=== PATIENT | male | born 1945 | race Caucasian/White ===

== ENCOUNTER 2021-06-23 14:48 | Inpatient (IN) ==
[2021-06-24] MEDS ORDERED: Acetaminophen 325 MG TABLET PO PRN (18:54)
[2021-06-24] MEDS: methocarbamoL 500 MG TABLET PO PRN (19:33)
[2021-06-24] MEDS: *HR* OxyCODONE Immed Rel 5 MG TABLET PO PRN (19:33)
[2021-06-24] MEDS: Melatonin 3 MG TABLET PO SCH (20:36)
[2021-06-24] MEDS: traZODone 50 MG TABLET PO PRN (20:36)
[2021-06-24] MEDS: Sennosides/Docusate Sodium TABLET PO SCH (20:36)
[2021-06-24] MEDS ORDERED: Hydrocortisone Acetate 25 MG RECTAL SUPPOSITORY RC ONE (22:35)
[2021-06-24] MEDS ORDERED: Hydrocortisone Acetate 25 MG RECTAL SUPPOSITORY RC PRN (22:57)
[2021-06-25] MEDS: *HR* OxyCODONE Immed Rel 5 MG TABLET PO PRN ×3 (00:04→08:23)
[2021-06-25] MEDS: *HR* Enoxaparin 40 MG/0.4 ML SYRINGE SQ SCH (03:56)
[2021-06-25] MEDS: methocarbamoL 500 MG TABLET PO PRN (03:57)
[2021-06-25 04:11] LABS: Bilirubin,Urine Negative (Negative); Blood,Urine Moderate (Negative); Clarity,Urine Clear (Clear); Color,Urine Yellow (Yellow); Glucose,Urine (UA) Normal (Normal); Ketones,Urine 15 mg/dL (Negative); Leukocyte Esterase,Urine Negative (Negative); Nitrite,Urine Positive (Negative); PH,Urine 6.5 pH Units (5.0-8.0); Protein,Urine Trace mg/dL (Neg-Trace); Specific Gravity,Urine 1.025 (1.010-1.025); Urobilinogen,Urine Normal (Normal)
[2021-06-25 04:25] LABS: Bacteria,Urine Many per hpf (None-Few); RBC,Urine 0-3 per hpf (0-3); Squamous Epithelial Cell,Urine Few per hpf (None-Few); WBC,Urine 0-3 per hpf (0-3)
[2021-06-25 05:55] LABS: Basophils % 0.2 %; Eosinophils # 0.1 K/mcL (0.0-0.6); Eosinophils % 1.4 %; Hematocrit 24.3 % (37.5-50.1); Immature Granulocytes % 1.4 % (0-4); Lymphocytes # 0.4 K/mcL (0.6-4.6); Lymphocytes % 7.2 %; Mean Corpuscular HGB Conc 32.9 g/dL (31.6-35.5); Mean Corpuscular Hemoglobin 30.5 pg (28.0-33.3); Mean Corpuscular Volume 92.7 fL (83.0-100.0); Mean Platelet Volume 8.8 fL (9.4-12.4); Monocytes % 0.7 %; Nucleated Red Blood Cells 0.7 /100 WBC (0); Platelet Count 215 K/mcL (140-400); Red Blood Count 2.62 M/mcL (4.19-5.50); Red Cell Distribution Width 14.6 % (11.5-14.5); Segmented Neutrophils % 89.1 %; White Blood Count 5.7 K/mcL (4.3-11.1)
[2021-06-25 05:56] LABS: Neutrophils # 5.1 K/mcL (1.6-8.9)
[2021-06-25 06:10] LABS: BUN/Creatinine Ratio 26 (6-26); Blood Urea Nitrogen 22 mg/dL (8-23); Calcium 8.5 mg/dL (8.6-10.3); Carbon Dioxide 22 mEq/L (23-29); Chloride 103 mEq/L (98-107); Glucose 108 mg/dL (70-105); Osmolality,Calculated 280 (280-300); Potassium 3.7 mEq/L (3.5-5.1); Sodium 133 mEq/L (136-145); eGFR For African Americans > 60 (> 60); eGFR For Non-African Americans > 60 (> 60)
[2021-06-25] MEDS ORDERED: Preparation H Ointment 57 GM TUBE TP PRN (08:00)
[2021-06-25] MEDS: Sennosides/Docusate Sodium TABLET PO SCH ×2 (08:14→20:19)
[2021-06-25] MEDS: polyethylene glycoL 3350 17 GM POWD.PACK PO SCH (08:15)
[2021-06-25] MEDS ORDERED: CefTRIAXone 1,000 MG VIAL IVPB SCH (09:00)
[2021-06-25] MEDS ORDERED: cefTRIAXone 1,000 MG in 0.9 % Sodium Chloride Mini Bag 100 ML IVPB SCH (09:00)
[2021-06-25] MEDS ORDERED: 0.9 % Sodium Chloride 500 ML ONE (10:43)
[2021-06-25] MEDS ORDERED: 0.9 % Sodium Chloride 500 ML IVC ONE ×2 (10:44→18:25)
[2021-06-25] MEDS ORDERED: *HR* LORazepam 2 MG/ML VIAL IVP ONE (10:44)
[2021-06-25] MEDS ORDERED: Acetaminophen IV 1,000 MG/100 ML BAG IVPB ONE ×2 (10:49→11:06)
[2021-06-25] MEDS: 0.9 % Sodium Chloride 1,000 ML IVC SCH ×2 (11:47→22:03)
[2021-06-25] MEDS ORDERED: 0.9 % Sodium Chloride 1,000 ML IVC ONE ×2 (11:56→16:18)
[2021-06-25] MEDS: Piperacillin/Tazobactam 3.375 GM in 0.9 % Sodium Chloride Mini Bag 100 ML IVPB SCH ×2 (12:40→20:20)
[2021-06-25] MEDS ORDERED: 0.9 % Sodium Chloride 500 ML IV ONE (14:58)
[2021-06-25 18:05] LABS: BUN/Creatinine Ratio 21 (6-26); Blood Urea Nitrogen 23 mg/dL (8-23); Calcium 7.5 mg/dL (8.6-10.3); Carbon Dioxide 19 mEq/L (23-29); Chloride 105 mEq/L (98-107); Glucose 107 mg/dL (70-105); Osmolality,Calculated 278 (280-300); Potassium 3.4 mEq/L (3.5-5.1); Sodium 132 mEq/L (136-145); eGFR For African Americans > 60 (> 60); eGFR For Non-African Americans > 60 (> 60)
[2021-06-25] MEDS: Melatonin 3 MG TABLET PO SCH (20:19)
[2021-06-25] MEDS: Hydrocortisone Acetate 25 MG RECTAL SUPPOSITORY RC SCH (20:20)
[2021-06-26] MEDS: *HR* Enoxaparin 40 MG/0.4 ML SYRINGE SQ SCH (04:06)
[2021-06-26] MEDS: Piperacillin/Tazobactam 3.375 GM in 0.9 % Sodium Chloride Mini Bag 100 ML IVPB SCH ×3 (04:06→20:35)
[2021-06-26] MEDS: *HR* OxyCODONE Immed Rel 5 MG TABLET PO PRN ×2 (04:28→20:35)
[2021-06-26 06:00] LABS: Hematocrit 23.1 % (37.5-50.1); Hemoglobin 7.5 g/dL (12.9-16.9); Mean Corpuscular HGB Conc 32.5 g/dL (31.6-35.5); Mean Corpuscular Volume 95.5 fL (83.0-100.0); Mean Platelet Volume 9.4 fL (9.4-12.4); Platelet Count 217 K/mcL (140-400); Red Blood Count 2.42 M/mcL (4.19-5.50)
[2021-06-26 06:25] LABS: Alanine Aminotransferase 31 Units/L (7-52); Albumin 3.3 g/dL (3.5-5.7); Albumin/Globulin Ratio 1.7 (1.1-2.2); Alkaline Phosphatase 61 Units/L (34-104); Aspartate Amino Transferase 27 Units/L (13-39); BUN/Creatinine Ratio 22 (6-26); Bilirubin,Total 1.4 mg/dL (0.3-1.0); Blood Urea Nitrogen 25 mg/dL (8-23); Calcium 7.5 mg/dL (8.6-10.3); Carbon Dioxide 19 mEq/L (23-29); Chloride 106 mEq/L (98-107); Glucose 101 mg/dL (70-105); Magnesium 1.9 mg/dL (1.6-2.6); Osmolality,Calculated 287 (280-300); Potassium 3.4 mEq/L (3.5-5.1); Sodium 136 mEq/L (136-145); Total Protein 5.3 g/dL (6.4-8.9); eGFR For African Americans > 60 (> 60); eGFR For Non-African Americans > 60 (> 60)
[2021-06-26] MEDS: 0.9 % Sodium Chloride 1,000 ML IVC SCH ×2 (06:26→18:11)
[2021-06-26] MEDS: Sennosides/Docusate Sodium TABLET PO SCH ×2 (08:35→20:35)
[2021-06-26] MEDS: Hydrocortisone Acetate 25 MG RECTAL SUPPOSITORY RC SCH ×2 (08:35→20:35)
[2021-06-26] MEDS: polyethylene glycoL 3350 17 GM POWD.PACK PO SCH (08:36)
[2021-06-26] MEDS ORDERED: 0.9 % Sodium Chloride 500 ML IV ONE (12:49)
[2021-06-26] MEDS: Melatonin 3 MG TABLET PO SCH (20:35)
[2021-06-27] MEDS: 0.9 % Sodium Chloride 1,000 ML IVC SCH ×3 (01:11→08:59)
[2021-06-27] MEDS: *HR* Enoxaparin 40 MG/0.4 ML SYRINGE SQ SCH (04:26)
[2021-06-27] MEDS: Piperacillin/Tazobactam 3.375 GM in 0.9 % Sodium Chloride Mini Bag 100 ML IVPB SCH ×3 (04:28→21:42)
[2021-06-27 04:50] LABS: Hematocrit 21.5 % (37.5-50.1); Mean Corpuscular HGB Conc 32.6 g/dL (31.6-35.5); Mean Corpuscular Hemoglobin 30.7 pg (28.0-33.3); Mean Corpuscular Volume 94.3 fL (83.0-100.0); Mean Platelet Volume 9.1 fL (9.4-12.4); Platelet Count 193 K/mcL (140-400); Red Blood Count 2.28 M/mcL (4.19-5.50); Red Cell Distribution Width 15.8 % (11.5-14.5)
[2021-06-27 05:05] LABS: BUN/Creatinine Ratio 21 (6-26); Blood Urea Nitrogen 19 mg/dL (8-23); Calcium 7.3 mg/dL (8.6-10.3); Carbon Dioxide 21 mEq/L (23-29); Chloride 113 mEq/L (98-107); Glucose 90 mg/dL (70-105); Osmolality,Calculated 292 (280-300); Potassium 3.5 mEq/L (3.5-5.1); Sodium 140 mEq/L (136-145); eGFR For African Americans > 60 (> 60); eGFR For Non-African Americans > 60 (> 60)
[2021-06-27] MEDS: Sennosides/Docusate Sodium TABLET PO SCH ×2 (09:02→20:41)
[2021-06-27] MEDS: Hydrocortisone Acetate 25 MG RECTAL SUPPOSITORY RC SCH ×2 (09:03→20:42)
[2021-06-27] MEDS: polyethylene glycoL 3350 17 GM POWD.PACK PO SCH (09:03)
[2021-06-27] MEDS ORDERED: 0.9 % Sodium Chloride 500 ML ONE (14:11)
[2021-06-27] MEDS: Melatonin 3 MG TABLET PO SCH (20:42)
[2021-06-28] MEDS: Piperacillin/Tazobactam 3.375 GM in 0.9 % Sodium Chloride Mini Bag 100 ML IVPB SCH ×3 (04:32→21:15)
[2021-06-28] MEDS: Acetaminophen/Butalbital/CaffeineTABLET PO PRN (04:32)
[2021-06-28 04:53] LABS: Hematocrit 24.1 % (37.5-50.1); Mean Corpuscular HGB Conc 33.2 g/dL (31.6-35.5); Mean Corpuscular Hemoglobin 30.4 pg (28.0-33.3); Mean Corpuscular Volume 91.6 fL (83.0-100.0); Mean Platelet Volume 8.9 fL (9.4-12.4); Platelet Count 232 K/mcL (140-400); Red Blood Count 2.63 M/mcL (4.19-5.50); Red Cell Distribution Width 15.7 % (11.5-14.5); White Blood Count 13.6 K/mcL (4.3-11.1)
[2021-06-28 05:07] LABS: BUN/Creatinine Ratio 16 (6-26); Blood Urea Nitrogen 14 mg/dL (8-23); Calcium 7.8 mg/dL (8.6-10.3); Carbon Dioxide 22 mEq/L (23-29); Chloride 112 mEq/L (98-107); Glucose 90 mg/dL (70-105); Magnesium 2.2 mg/dL (1.6-2.6); Osmolality,Calculated 290 (280-300); Potassium 3.4 mEq/L (3.5-5.1); Sodium 140 mEq/L (136-145); eGFR For African Americans > 60 (> 60); eGFR For Non-African Americans > 60 (> 60)
[2021-06-28] MEDS: Sennosides/Docusate Sodium TABLET PO SCH ×2 (10:36→20:55)
[2021-06-28] MEDS: Hydrocortisone Acetate 25 MG RECTAL SUPPOSITORY RC SCH ×2 (10:36→20:59)
[2021-06-28] MEDS: polyethylene glycoL 3350 17 GM POWD.PACK PO SCH (10:37)
[2021-06-28 12:01] LABS: % Iron Saturation 29 % (20-55); Iron 65 mcg/dL (65-175); Transferrin 159 mg/dL (203-362)
[2021-06-28] MEDS: *HR* OxyCODONE Immed Rel 5 MG TABLET PO PRN ×2 (12:20→18:38)
[2021-06-28 12:26] LABS: Folate 13.3 ng/mL (3.0-16.0)
[2021-06-28] MEDS: traZODone 50 MG TABLET PO PRN (20:55)
[2021-06-28] MEDS: Melatonin 3 MG TABLET PO SCH (20:55)
[2021-06-29] MEDS: *HR* OxyCODONE Immed Rel 5 MG TABLET PO PRN ×2 (05:14→09:25)
[2021-06-29] MEDS: Piperacillin/Tazobactam 3.375 GM in 0.9 % Sodium Chloride Mini Bag 100 ML IVPB SCH ×3 (05:15→21:35)
[2021-06-29] MEDS: polyethylene glycoL 3350 17 GM POWD.PACK PO SCH (09:16)
[2021-06-29] MEDS: Hydrocortisone Acetate 25 MG RECTAL SUPPOSITORY RC SCH ×2 (09:16→21:11)
[2021-06-29] MEDS: Sennosides/Docusate Sodium TABLET PO SCH ×2 (09:16→21:11)
[2021-06-29] MEDS: Acetaminophen/Butalbital/CaffeineTABLET PO PRN (11:35)
[2021-06-29] MEDS ORDERED: Acetaminophen/Butalbital/CaffeineTABLET PO STA (13:59)
[2021-06-29] MEDS: traZODone 50 MG TABLET PO PRN (21:11)
[2021-06-29] MEDS: Melatonin 3 MG TABLET PO SCH (21:11)
[2021-06-29] MEDS: Fluticasone Propionate Nasal 50 MCG/SPRAY BOTTLE NS PRN (21:13)
[2021-06-30] MEDS: Acetaminophen/Butalbital/CaffeineTABLET PO PRN ×2 (04:27→14:35)
[2021-06-30] MEDS: Piperacillin/Tazobactam 3.375 GM in 0.9 % Sodium Chloride Mini Bag 100 ML IVPB SCH (04:30)
[2021-06-30] MEDS: polyethylene glycoL 3350 17 GM POWD.PACK PO SCH (08:15)
[2021-06-30] MEDS: Hydrocortisone Acetate 25 MG RECTAL SUPPOSITORY RC SCH ×2 (08:15→20:12)
[2021-06-30] MEDS: Sennosides/Docusate Sodium TABLET PO SCH ×2 (08:15→20:12)
[2021-06-30] MEDS: Melatonin 3 MG TABLET PO SCH (20:11)
[2021-06-30] MEDS: traZODone 50 MG TABLET PO PRN (20:12)
[2021-06-30] MEDS: Cefdinir 300 MG CAPSULE PO SCH (20:21)
[2021-06-30] MEDS: Fluticasone Propionate Nasal 50 MCG/SPRAY BOTTLE NS PRN (20:25)
[2021-07-01] MEDS: Acetaminophen/Butalbital/CaffeineTABLET PO PRN ×2 (03:10→17:51)
[2021-07-01] MEDS: methocarbamoL 500 MG TABLET PO PRN (05:05)
[2021-07-01] MEDS: Cefdinir 300 MG CAPSULE PO SCH ×2 (09:20→19:56)
[2021-07-01] MEDS: polyethylene glycoL 3350 17 GM POWD.PACK PO SCH (09:20)
[2021-07-01] MEDS: Sennosides/Docusate Sodium TABLET PO SCH ×2 (09:20→19:57)
[2021-07-01] MEDS: Hydrocortisone Acetate 25 MG RECTAL SUPPOSITORY RC SCH ×2 (09:40→19:55)
[2021-07-01] MEDS: Furosemide 40 MG TABLET PO SCH (12:16)
[2021-07-01 18:47] VITALS: RESP 14
[2021-07-01] MEDS: Melatonin 3 MG TABLET PO SCH (19:56)
[2021-07-02] MEDS: Acetaminophen/Butalbital/CaffeineTABLET PO PRN ×2 (03:53→12:51)
[2021-07-02 06:51] VITALS: BP 131/84; PULSE 61; TEMP 98.1; O2SAT 98
[2021-07-02] MEDS: Cefdinir 300 MG CAPSULE PO SCH (08:11)
[2021-07-02] MEDS: Sennosides/Docusate Sodium TABLET PO SCH (08:13)
[2021-07-02] MEDS: polyethylene glycoL 3350 17 GM POWD.PACK PO SCH (08:13)
[2021-07-02] MEDS: Furosemide 40 MG TABLET PO SCH (08:14)
[2021-07-02] MEDS: Hydrocortisone Acetate 25 MG RECTAL SUPPOSITORY RC SCH (08:16)
[2021-07-02] MEDS: methocarbamoL 500 MG TABLET PO PRN (09:54)
== END 2021-07-02 15:35 | disposition home health service (06) | DRG 872 ==
LOC: INPGRE 06-24 17:58
PROVIDERS: ADMIT Family Medicine; ATTEND Family Medicine